=== PATIENT | male | born 2000 | race Caucasian/White ===

== ENCOUNTER 2018-12-23 12:08 | Emergency (ER) | payer BC ==
[2018-12-23 12:33] VITALS: BP 126/60; PULSE 89; TEMP 98.4; BMI 25.7
--- NOTE | 2018-12-23 13:09 | PDOC ---
History of Present Illness - General Chief Complaint: Syncope/Near Syncope Stated Complaint: WEAKNESS Time Seen by Provider: 12/23/18 12:57 History Source: Patient, Parent(s) - History of Present Illness Presenting Symptoms: Syncope Past History - Past Medical History Allergies/Adverse Reactions: Allergies Allergy/AdvReac Type Severity Reaction Status Date / Time No Known Allergies Allergy Verified 12/23/18 12:30 Home Medications: Ambulatory Orders Oseltamivir Phosphate [Tamiflu] 75 mg PO BID #9 capsule 12/23/18 COPD: No - Immunization History Immunization Up to Date: Yes - Suicide/Smoking/Psychosocial Hx Smoking History: Never smoked Hx Alcohol Use: No Drug/Substance Use Hx: No Review of Systems - Review of Systems Constitutional: Yes: Fever, Malaise HEENTM: No: Blurred Vision, Ear Pain, Throat Pain Respiratory: Yes: Cough. No: Shortness of Breath Cardiac (ROS): No: Chest Pain ABD/GI: Yes: Nausea, Vomiting. No: Diarrhea, Abdominal cramping : No: Dysuria Neurological: Yes: Headache *Physical Exam - Vital Signs Last Vital Signs Temp Pulse Resp BP Pulse Ox 98.4 F 89 16 126/60 97 12/23/18 12:30 12/23/18 12:30 12/23/18 12:30 12/23/18 12:30 12/23/18 12:30 - Physical Exam General Appearance: Yes: Appropriately Dressed. No: Apparent Distress HEENT: positive: Normal Voice Respiratory/Chest: positive: Lungs Clear, Normal Breath Sounds. negative: Respiratory Distress Cardiovascular: positive: Regular Rate, S1, S2 Gastrointestinal/Abdominal: positive: Soft. negative: Tender Integumentary: positive: Dry, Warm Neurologic: positive: Fully Oriented, Alert, Normal Mood/Affect, Motor Strength 5/5 ED Treatment Course - LABORATORY CBC & Chemistry Diagram: 12/23/18 13:16 12/23/18 13:16 - ADDITIONAL ORDERS Additional order review: Laboratory Results 12/23/18 13:16 Sodium 137 Potassium 4.1 Chloride 102 Carbon Dioxide 28 Anion Gap 6 L BUN 13 Creatinine 1.0 Creat Clearance w eGFR 95.26 Random Glucose 160 H Calcium 8.4 L Total Bilirubin 0.7 AST 31 ALT 40 Alkaline Phosphatase 54 Total Protein 7.5 Albumin 4.2 12/23/18 13:16 RBC 4.93 MCV 87.1 MCHC 33.3 RDW 13.4 MPV 9.0 Neutrophils % 71.2 Lymphocytes % 15.6 Monocytes % 13.0 H Eosinophils % 0.0 Basophils % 0.2 - Medications Given in the ED: ED Medications Discontinued Medications Generic Name Dose Route Start Last Admin Trade Name Aubree PRN Reason Stop Dose Admin Sodium Chloride 1,000 mls @ 1,000 mls/hr 12/23/18 13:10 12/23/18 13:43 Normal Saline - IV 12/23/18 14:09 1,000 mls/hr ASDIR STA Administration Oseltamivir Phosphate 75 mg 12/23/18 14:07 12/23/18 14:11 Tamiflu - PO 12/23/18 14:08 75 mg ONCE ONE Administration Medical Decision Making - Medical Decision Making 12/23/18 13:05 18 yo male, no significant history, brought in by family for syncope this a.m. Patient states for the past 2 days has had URI sxs w/ cough, subj fever, anorexia and weakness. Had 1 e/o nausea, vomiting, last night. No neck stiffness, photophobia, rash, abdominal pain, diarrhea or dysuria. No known sick contacts or recent travel. This a.m. around 5, woke up to go to the bathroom and the next thing he remembers is waking up on the floor. Denies any headache, dizziness, nausea, vomiting or visual changes at this time. No seizure like activity witnessed per family and no tongue pain and incontinence. No chest pain or shortness of breath. See exam Syncope in setting of viral syndrome Stable and well monique and unremarkable exam -ekg -labs -IVF -reassess 12/23/18 14:08 +Flu. IVF and 1st dose of tamiflu given here. EKG was reviewed with Dr. Henderson and unremarkable. Patient remained stable and well-appearing here. Will dc with prescription for Tamiflu and supportive treatment. Reasons to return to ER. Discussed with family IVF in progress. 1st dose tamiflu given *DC/Admit/Observation/Transfer Diagnosis at time of Disposition: Influenza A Syncope Qualifiers: Syncope type: unspecified Qualified Code(s): R55 - Syncope and collapse - Discharge Dispostion Disposition: HOME Condition at time of disposition: Improved - Prescriptions Prescriptions: Oseltamivir Phosphate [Tamiflu] 75 mg PO BID #9 capsule - Referrals - Patient Instructions Printed Discharge Instructions: [facility] for Syncope in Adults (Fainting), Influenza Additional Instructions: Your child has the flu and was prescribed Tamiflu, which will lessen the duration of symptoms. He needs to rest, maintain plenty of hydration and take Motrin or Tylenol for pain/fever Return to ER for worsening of symptoms. - Post Discharge Activity Forms/Work/School Notes: Back to School
[2018-12-23] MEDS ORDERED: SODIUM CHLORIDE 1,000 ML IV STA (13:10)
[2018-12-23 13:29] LABS: BASO % 0.2 % (0-2.0); HEMATOCRIT 42.9 % (35.4-49); HEMOGLOBIN 14.3 GM/dL (11.7-16.9); LYMPH % 15.6 % (8-40); MCHC 33.3 g/dl (32.0-35.9); MEAN CELL VOLUME 87.1 fl (80-96); NEUT % 71.2 % (42.8-82.8); PLATELET COUNT 146 K/MM3 (134-434); RBC 4.93 M/mm3 (4.00-5.60); RDW 13.4 % (11.9-15.9); WHITE BLOOD COUNT 5.7 K/mm3 (4.0-10.0)
--- NOTE | 2018-12-23 13:40 | PDOC ---
*Physical Exam - Vital Signs Last Vital Signs Temp Pulse Resp BP Pulse Ox 98.4 F 89 16 126/60 97 12/23/18 12:30 12/23/18 12:30 12/23/18 12:30 12/23/18 12:30 12/23/18 12:30 - Physical Exam Comments: 12/23/18 13:39 The patient was examined by [MARYJO Watts] under my direct supervision. I personally evaluated the patient. I concur with the above findings and the plan of care. ED Treatment Course - LABORATORY CBC & Chemistry Diagram: 12/23/18 13:16 12/23/18 13:16 - ADDITIONAL ORDERS Additional order review: 12/23/18 13:16 RBC 4.93 MCV 87.1 MCHC 33.3 RDW 13.4 MPV 9.0 Neutrophils % 71.2 Lymphocytes % 15.6 Monocytes % 13.0 H Eosinophils % 0.0 Basophils % 0.2 *DC/Admit/Observation/Transfer Diagnosis at time of Disposition: Influenza A, Syncope - Discharge Dispostion Disposition: HOME Condition at time of disposition: Improved - Prescriptions Prescriptions: Oseltamivir Phosphate [Tamiflu] 75 mg PO BID #9 capsule - Referrals - Patient Instructions Printed Discharge Instructions: DI for Syncope in Adults (Fainting), Influenza Additional Instructions: Your child has the flu and was prescribed Tamiflu, which will lessen the duration of symptoms. He needs to rest, maintain plenty of hydration and take Motrin or Tylenol for pain/fever Return to ER for worsening of symptoms. - Post Discharge Activity Forms/Work/School Notes: Back to School
[2018-12-23 13:59] LABS: ALBUMIN 4.2 g/dl (3.4-5.0); ALK PHOS 54 U/L (45-117); ANION GAP 6 MMOL/L (8-16); BILIRUBIN,TOTAL 0.7 mg/dL (0.2-1); BLOOD UREA NITROGEN 13 mg/dL (7-18); CALCIUM 8.4 mg/dL (8.5-10.1); CHLORIDE 102 mmol/L (98-107); CO2 28 mmol/L (21-32); GLUCOSE,RANDOM 160 mg/dL (74-106); POTASSIUM 4.1 mmol/L (3.5-5.1); SGOT/AST 31 U/L (15-37); SGPT/ALT 40 U/L (13-61); SODIUM 137 mmol/L (136-145); TOT PROT 7.5 g/dl (6.4-8.2)
[2018-12-23] MEDS ORDERED: OSELTAMIVIR PHOSPHATE 75 MG CAPSULE ONE (13:59)
[2018-12-23] MEDS ORDERED: OSELTAMIVIR PHOSPHATE 75 MG CAPSULE PO ONE (14:07)
--- NOTE | 2018-12-23 15:16 | EKG ---
Test Reason : Blood Pressure : / mmHG Vent. Rate : 081 BPM Atrial Rate : 081 BPM P-R Int : 172 ms QRS Dur : 084 ms QT Int : 342 ms P-R-T Axes : 062 025 046 degrees QTc Int : 397 ms POOR DATA QUALITY, INTERPRETATION MAY BE ADVERSELY AFFECTED NORMAL SINUS RHYTHM POSSIBLE LEFT ATRIAL ENLARGEMENT BORDERLINE ECG NO PREVIOUS ECGS AVAILABLE Confirmed by NICOLE PINO, NAVEEN ([id number]) on 12/23/2018 3:16:01 PM Referred By: Confirmed By:NAVEEN RIVERA MD
== END 2018-12-23 14:53 | disposition home or self-care (01) ==
LOC: JER 12:08
PROC: 3E0337Z Introduction of Electrolytic and Water Balance Substance into Peripheral Vein, Percutaneous Approach (ICD-10-PCS; principal; 2018-12-23)
DX: J09.X2 Influenza due to identified novel influenza A virus with other respiratory manifestations (principal); R55 Syncope and collapse
CPT/HCPCS: 36415; 80053; 85025; 87804; 93005; 93010; 99281-25; J7030

== ENCOUNTER 2019-10-12 09:58 | Emergency (ER) | payer BC ==
[2019-10-12 10:19] VITALS: BMI 23.6
--- NOTE | 2019-10-12 10:20 | PDOC ---
Rapid Medical Evaluation Chief Complaint: Cold Symptoms Time Seen by Provider: 10/12/19 10:18 Medical Evaluation: Allergies Allergy/AdvReac Type Severity Reaction Status Date / Time No Known Allergies Allergy Verified 12/23/18 12:30 10/12/19 10:18 Patient is 19M with no PMH here today with rhinorrhea, cough, decreased appetite and syncope. Nontender abdomen, RRR, CTAB Labs ordered. EKG ordered. Patient to main ED. Discharge Disposition - Diagnosis Syncope - Discharge Dispostion Condition at time of disposition: Stable - Referrals - Patient Instructions - Post Discharge Activity
[2019-10-12 10:45] LABS: HEMATOCRIT 41.6 % (35.4-49); HEMOGLOBIN 13.9 GM/dL (11.7-16.9); MCH 28.9 pg (25.7-33.7); MCHC 33.5 g/dl (32.0-35.9); MEAN CELL VOLUME 86.3 fl (80-96); PLATELET COUNT 157 K/MM3 (134-434); RBC 4.82 M/mm3 (4.00-5.60); RDW 12.9 % (11.9-15.9); WHITE BLOOD COUNT 5.6 K/mm3 (4.0-10.0)
[2019-10-12 10:56] LABS: INR 1.25 (0.83-1.09); PROTHROMBIN TIME (PATIENT) 14.8 SEC (9.7-13.0)
[2019-10-12] MEDS ORDERED: SODIUM CHLORIDE 1,000 ML IV STA ×2 (11:14→13:04)
[2019-10-12] MEDS ORDERED: ACETAMINOPHEN 1000 MG/100 ML VIAL (NON FORMULARY) IVPB ONE (11:14)
[2019-10-12 11:18] LABS: ALBUMIN 4.1 g/dl (3.4-5.0); BILIRUBIN,TOTAL 0.7 mg/dL (0.2-1); BLOOD UREA NITROGEN 14.4 mg/dL (7-18); CALCIUM 8.4 mg/dL (8.5-10.1); CREATININE 0.9 mg/dL (0.55-1.3); POTASSIUM 3.7 mmol/L (3.5-5.1); TOT PROT 7.2 g/dl (6.4-8.2)
--- NOTE | 2019-10-12 11:20 | PDOC ---
Attending Attestation - Resident Resident Name: JenniferSatish - ED Attending Attestation I have performed the following: I have examined & evaluated the patient, The case was reviewed & discussed with the resident, I agree w/resident's findings & plan, Exceptions are as noted - HPI HPI: 10/12/19 11:22 19y M no pmhx presents with syncopal episode. Pt endorses URI symptoms for the past 2 days, including malaise, subjectiver fever, nonproductive cough. Pt felt lightheaded this morning when he got out of bed, felt like syncopizing on way niesha from bathroom, sat down and called out to his mom - was witnessed by his mom, had a brief syncopal episode lasting seconds, then with return of conciousnos. no associated headache, cp, sob, palpitations, back pain. pt ntoes he has not been eating or drinking very much due to being sick. has prior hx of syncope alst year also when he was sick. no family history of premature deaths or known cardiac problems. - Physicial Exam PE: GENERAL: The patient is awake, alert, and fully oriented, Nontoxic - in no acute distress. HEAD: Normocephalic, atraumatic. EYES: extraocular movements intact, sclera anicteric, conjunctiva clear. ENT: Normal voice, dry mucous membranes. NECK: Normal range of motion, supple LUNGS: Breath sounds equal, clear to auscultation bilaterally. No wheezes, no rhonchi, no rales. HEART: Regular rate and rhythm, without murmur, rub or gallop. ABDOMEN: Soft, nontender, No guarding, no rebound.No CVA tenderness EXTREMITIES: Normal range of motion, no edema. No cyanosis. No erythema, or tenderness. NEUROLOGICAL: No facial assymetry, Normal speech, PSYCH: Normal mood, normal affect. SKIN: Warm, Dry, normal turgor, - Medical Decision Making 10/12/19 15:44 likely dehydration from illness labs reviewed ekg unremarkble pt was feeling well, ambulating dc with pmd fu return precautions were dsicussed Heart Score/ECG Review - ECG Impressions Comment:: 10/12/19 15:45 EKG performed 10:42 Rate of 92 regular rate/rythm no signs of brugada
[2019-10-12] MEDS ORDERED: ONDANSETRON 4 MG/2 ML VIAL ONE (11:21)
[2019-10-12] MEDS ORDERED: ACETAMINOPHEN INJECTION 100 ML IVPB ONE (11:22)
[2019-10-12 12:31] VITALS: BP 129/69; PULSE 90; TEMP 100
--- NOTE | 2019-10-12 12:49 | PDOC ---
History of Present Illness - General Chief Complaint: Cold Symptoms Stated Complaint: COLD SYMPTOMS/SYNCOPE Time Seen by Provider: 10/12/19 10:18 History Source: Patient Exam Limitations: No Limitations - History of Present Illness Initial Comments: 19 yo M with no past medical history presents with a syncopal episode. Per the patient, he has had nasal congestion, cough, and fever for the past 2 days. When he got out of his bed to use the bathroom, he was walking back to bed when he felt lightheaded, sat down, and had a syncopal episode lasting for less than 1 minute per the mother who witnessed the syncopal event. No head trauma was sustained. Per the mother, he had symptoms similar to his presenting symptoms approximately 1 year ago when he had an URI. Per the mother, the patient is at baseline and denies cardiac history. Per the patient, he continues to have malaise and denies the following: ears/nose/throat pain, visual disturbance, FND , chest pain, SOB, palpitations, dizziness, back pain, dysuria, hematuria, diarrhea, and leg pain/swelling. No rashes noted. Per the mother, denies familial cardiac sudden in the past or congenital dysrhythmias. Allergies: NKDA Social: Denies tobacco, alcohol, and substance abuse. Past History - Past Medical History Allergies/Adverse Reactions: Allergies Allergy/AdvReac Type Severity Reaction Status Date / Time No Known Allergies Allergy Verified 12/23/18 12:30 Home Medications: Ambulatory Orders NK [No Known Home Medication] 10/12/19 COPD: No - Immunization History Immunization Up to Date: Yes - Psycho Social/Smoking Cessation Hx Smoking History: Never smoked Have you smoked in the past 12 months: No Information on smoking cessation initiated: No Hx Alcohol Use: No Drug/Substance Use Hx: No Review of Systems - Review of Systems Able to Perform ROS?: Yes Is the patient limited Setswana proficient: No Constitutional: Yes: Fever, Malaise. No: Chills, Diaphoresis, Weakness HEENTM: No: Eye Pain, Ear Pain, Nose Pain, Throat Pain, Mouth Pain Respiratory: Yes: Cough. No: Shortness of Breath, Productive cough, Hemoptysis Cardiac (ROS): No: Chest Pain, Lightheadedness, Palpitations, Chest Tightness ABD/GI: Yes: Poor Fluid Intake. No: Constipated, Diarrhea, Nausea, Poor Appetite, Rectal Bleeding, Vomiting, Tarry Stools : No: Burning, Dysuria, Hematuria Musculoskeletal: No: Back Pain, Joint Pain, Neck Pain Integumentary: No: Bruising, Erythema, Rash Neurological: No: Headache, Numbness, Tingling, Tremors Psychiatric: No: Change in Appetite Endocrine: No: Unexplained Weight Loss Hematologic/Lymphatic: No: Anemia *Physical Exam - Vital Signs Last Vital Signs Temp Pulse Resp BP Pulse Ox 100 F H 90 18 129/69 99 10/12/19 12:31 10/12/19 12:31 10/12/19 12:31 10/12/19 12:31 10/12/19 12:31 - Physical Exam General Appearance: Yes: Nourished, Appropriately Dressed. No: Apparent Distress, Intoxicated HEENT: positive: EOMI, KIA, Normal Voice, Symmetrical, Pharynx Normal, Hearing Grossly Normal, Other (dry mm). negative: Pale Conjunctivae, Scleral Icterus (R ), Scleral Icterus (L), Muffled/Hoarse voice, Pharyngeal Erythema, Tonsillar Exudate, Tonsillar Erythema, Nasal Congestion, Rhinorrhea, Excessive drooling Neck: positive: Trachea midline, Supple. negative: Tender, Lymphadenopathy (R) , Tender lateral, Tender midline Respiratory/Chest: positive: Lungs Clear, Normal Breath Sounds. negative: Chest Tender, Respiratory Distress, Accessory Muscle Use, Crackles, Rales, Rhonchi, Stridor, Wheezing Cardiovascular: positive: Regular Rhythm, Regular Rate, S1, S2. negative: Systolic Murmur Gastrointestinal/Abdominal: positive: Normal Bowel Sounds, Flat, Soft. negative : Tender, Guarding, Rebound, Tenderness Lymphatic: negative: Adenopathy Musculoskeletal: positive: Normal Inspection. negative: CVA Tenderness, Vertebral Tenderness Extremity: positive: Normal Capillary Refill, Normal Inspection, Normal Range of Motion. negative: Tender, Swelling, Calf Tenderness Integumentary: positive: Normal Color, Dry, Warm. negative: Jaundice, Moist, Hives, Petechiae, Rash, Swelling Neurologic: positive: Alert, Normal Mood/Affect ED Treatment Course - LABORATORY CBC & Chemistry Diagram: 10/12/19 10:20 10/12/19 10:20 - ADDITIONAL ORDERS Additional order review: Laboratory Results 10/12/19 10/12/19 10:20 10:20 PT with INR 14.80 H INR 1.25 H Sodium 135 L Potassium 3.7 Chloride 102 Carbon Dioxide 27 Anion Gap 6 L BUN 14.4 Creatinine 0.9 Est GFR (CKD-EPI)AfAm 141.01 Est GFR (CKD-EPI)NonAf 121.66 Random Glucose 125 H Calcium 8.4 L Total Bilirubin 0.7 AST 15 ALT 26 Alkaline Phosphatase 53 Total Protein 7.2 Albumin 4.1 10/12/19 10:20 RBC 4.82 MCV 86.3 MCHC 33.5 RDW 12.9 MPV 9.0 - Medications Given in the ED: ED Medications Discontinued Medications Generic Name Dose Route Start Last Admin Trade Name Freq PRN Reason Stop Dose Admin Acetaminophen 1,000 mg 10/12/19 11:14 10/12/19 11:31 Ofirmev Injection - IVPB 10/12/19 11:15 1,000 mg ONCE ONE Administration Sodium Chloride 1,000 mls @ 1,000 mls/hr 10/12/19 11:14 10/12/19 11:30 Normal Saline - IV 10/12/19 12:13 1,000 mls/hr ASDIR STA Administration Medical Decision Making - Medical Decision Making 19 yo M with no past medical history presents with a syncopal episode. Initial vitals: Initial Vital Signs Temp Pulse Resp BP Pulse Ox 98.7 F 97 H 18 134/80 97 10/12/19 10:15 10/12/19 10:15 10/12/19 10:15 10/12/19 10:15 10/12/19 10:15 Work up: patient presents with syncopal episode while sitting on the floor. per the patient, he has had poor PO intake due to URI like symptoms. Will assess cbc, cmp, ekg, cxr. ddx: rule out cardiogenic etiology of syncope with eKG. rule out electrolyte abnormalities. Laboratory Tests 10/12/19 10/12/19 10/12/19 10:20 10:20 10:20 WBC 5.6 RBC 4.82 Hgb 13.9 Hct 41.6 MCV 86.3 MCH 28.9 MCHC 33.5 RDW 12.9 Plt Count 157 MPV 9.0 PT with INR 14.80 H INR 1.25 H Sodium 135 L Potassium 3.7 Chloride 102 Carbon Dioxide 27 Anion Gap 6 L BUN 14.4 Creatinine 0.9 Est GFR (CKD-EPI)AfAm 141.01 Est GFR (CKD-EPI)NonAf 121.66 Random Glucose 125 H Calcium 8.4 L Total Bilirubin 0.7 AST 15 ALT 26 Alkaline Phosphatase 53 Total Protein 7.2 Albumin 4.1 CXR within normal limits EKG: ventricular rate is 95 bpm, OK is 172 ms, QRS is 82 ms. QTc is [address] with no ST elevation or depressions. No TWI. No EKG findings suggestive of Brugada. Patient was given fluids, tylenol and zofran. Patient reports marked improvement in symptoms and is well to be discharged. Dispo: Discharged Discharge - Discharge Information Problems reviewed: Yes Clinical Impression/Diagnosis: Syncope Condition: Stable Disposition: HOME - Follow up/Referral Referrals: [facility] [place] [place] [Provider Group] - Patient Discharge Instructions Patient Printed Discharge Instructions: How to Avoid a Cold or Flu, DI for Viral Upper Respiratory Infection -- Adult Additional Instructions: You were seen in the emergency department for your syncope. You were found to be dehydrated. Your labs were within normal limits. Please follow up with your primary medical doctor within 1 week after discharge for follow up care and management. Please return to the emergency department if you have worsening or new concerning symptoms. Thank you. - Post Discharge Activity
--- NOTE | 2019-10-12 13:26 | EKG ---
Test Reason : Blood Pressure : / mmHG Vent. Rate : 095 BPM Atrial Rate : 095 BPM P-R Int : 172 ms QRS Dur : 082 ms QT Int : 320 ms P-R-T Axes : 064 020 045 degrees QTc Int : 402 ms NORMAL SINUS RHYTHM POSSIBLE LEFT ATRIAL ENLARGEMENT BORDERLINE ECG WHEN COMPARED WITH ECG OF 23-DEC-2018 14:12, NO SIGNIFICANT CHANGE WAS FOUND Confirmed by Ryan Bush ([id number]) on 10/12/2019 1:25:55 PM Referred By: Confirmed By:Ryan Bush
== END 2019-10-12 14:45 | disposition home or self-care (01) ==
LOC: JER 09:58
PROC: 3E033NZ Introduction of Analgesics, Hypnotics, Sedatives into Peripheral Vein, Percutaneous Approach (ICD-10-PCS; principal; 2019-10-12)
DX: R55 Syncope and collapse (principal)
CPT/HCPCS: 36415; 71046-TC-FY; 80053; 85027; 85610; 93005; 93010; 99283-25; J0131; J7030